=== PATIENT | female | born 1965 | race Hispanic/Latino ===

== ENCOUNTER → 2020-03-05 | Outpatient (CLI) | payer OTHER | END | disposition home or self-care (01) | LOC: SHCH 10:00 | PROVIDERS: ATTEND Internal Medicine Cardiovascular Disease | DX: R00.2 Palpitations (principal) | CPT/HCPCS: 93306; 93356 ==

== ENCOUNTER → 2022-04-09 | Outpatient (CLI) | payer OTHER | END | disposition home or self-care (01) | LOC: RAH 07:19 | PROVIDERS: ATTEND Internal Medicine Gastroenterology | DX: R11.0 Nausea (principal); R10.13 Epigastric pain; R68.81 Early satiety | CPT/HCPCS: 78264; A9541 ==

== ENCOUNTER → 2023-01-03 | Outpatient (CLI) | payer OTHER ==
[~2023-01-03] MED LIST: GADOTERATE MEGLUMINE 10 MMOL/20 ML VIAL IV ONE
== END | disposition home or self-care (01) ==
LOC: OIH 09:25
PROVIDERS: ATTEND Internal Medicine Cardiovascular Disease
DX: Z13.6 Encounter for screening for cardiovascular disorders (principal)
CPT/HCPCS: 75571

== ENCOUNTER → 2023-06-09 | Outpatient (CLI) | payer OTHER ==
[2023-06-09 11:29] LABS: BASOPHILS # (AUTO) 0.04 K/uL (0.00-0.20); BASOPHILS % (AUTO) 0.6 % (0.0-5.0); EOSINOPHILS # (AUTO) 0.09 K/uL (0.00-0.70); EOSINOPHILS % (AUTO) 1.2 % (0.0-8.0); HEMATOCRIT 39.3 % (36-48); IMMATURE GRANULOCYTE ABSOLUTE 0.02 K/uL (0-1); MEAN CORPUSCULAR HEMOGLOBIN 29.7 pg (27.0-33.0); MEAN CORPUSCULAR HGB CONC 32.3 g/dL (32.0-36.0); MEAN CORPUSCULAR VOLUME 91.8 fL (79-99); MONOCYTES # (AUTO) 0.4 K/uL (0.1-1.0); MONOCYTES % (AUTO) 5.8 % (3.0-13.0); NEUTROPHILS # (AUTO) 4.7 K/uL (1.8-7.7); NEUTROPHILS % (AUTO) 65.1 % (40.0-77.0); PLATELET COUNT (AUTO) 244 K/uL (130-400); RED BLOOD CELL COUNT(AUTO) 4.28 MIL/uL (4.00-5.50); RED CELL DISTRIBUTION WIDTH 13.4 % (11.0-15.5); WHITE BLOOD COUNT (AUTO) 7.3 K/uL (4.8-10.8)
[2023-06-09 11:46] LABS: ALBUMIN 3.6 g/dL (3.5-5.0); BILIRUBIN,TOTAL 0.4 mg/dL (0.2-1.0); CREATININE 0.7 mg/dL (0.5-1.5); POTASSIUM 4.1 mmol/L (3.5-5.1); TOTAL PROTEIN, SERUM 7.3 g/dL (6.0-8.3)
== END | disposition home or self-care (01) ==
LOC: LAB 10:52
PROVIDERS: ATTEND Family Medicine
DX: R10.12 Left upper quadrant pain (principal)
CPT/HCPCS: 36415; 80053; 82150; 83690; 85025

== ENCOUNTER → 2023-06-11 | Outpatient (CLI) | payer OTHER ==
[~2023-06-11] MED LIST changes: -GADOTERATE MEGLUMINE 10 MMOL/20 ML VIAL IV ONE; +IOHEXOL-350 75 ML VIAL IV ONE
== END | disposition home or self-care (01) ==
LOC: RAH 07:56
PROVIDERS: ATTEND Internal Medicine Gastroenterology
DX: R10.12 Left upper quadrant pain (principal); Z90.49 Acquired absence of other specified parts of digestive tract
CPT/HCPCS: 74178; Q9967; 74170

== ENCOUNTER → 2025-06-02 | Outpatient (CLI) | payer OTHER ==
--- NOTE | 2025-06-03 00:57 | HMCIMG ---
EXAM: MR right Lower Extremity without IV contrast, Knee. CLINICAL HISTORY: M25.561 Pain in right knee TECHNIQUE: Multisequence, multiplanar magnetic resonance images of the right knee without intravenous contrast. Series acquired: 4 - AX T2 - TR: 4724.0 - TE: 98.3 - ET: 21.0 - Thk: 4.0 5 - AX T1 - TR: 687.0 - TE: 16.3 - ET: 4.0 - Thk: 4.0 6 - AX 2D MERGE - TR: 900.0 - TE: 14.9 - ET: 4.0 - Thk: 4.0 7 - COR PD - TR: 2131.0 - TE: 17.2 - ET: 9.0 - Thk: 3.0 8 - COR PD FS - TR: 2530.0 - TE: 17.3 - ET: 8.0 - Thk: 3.0 9 - COR 2D MERGE - TR: 901.0 - TE: 15.3 - ET: 4.0 - Thk: 3.1 10 - SAG PD - TR: 2359.0 - TE: 15.0 - ET: 8.0 - Thk: 3.0 11 - SAG T2 - TR: 4215.0 - TE: 106.0 - ET: 17.0 - Thk: 3.0 CONTRAST: None. COMPARISON: None provided. FINDINGS: LIGAMENTS: ANTERIOR CRUCIATE: Intact. POSTERIOR CRUCIATE: Intact. LATERAL COLLATERAL: Intact. MEDIAL COLLATERAL: Thickened femoral aspect medial collateral ligament probably sequela of prior trauma TENDONS: QUADRICEPS: Intact. PATELLAR: Intact. LATERAL GASTROCNEMIUS: Intact. MEDIAL GASTROCNEMIUS: Intact. ILIOTIBIAL BAND: Intact. POPLITEUS: Intact. BONES: No acute fracture or aggressive appearing osseous lesion. Bone marrow signal intensity is within normal limits. MUSCLES: Visualized muscles demonstrate normal girth and signal intensity. FLUID: Physiologic amount of joint fluid. CARTILAGE: No full-thickness chondral defect mild tricompartmental degenerative changes. Articular cartilage thinning. MENISCI: Obliquely oriented tear body, posterior horn medial meniscus. No displaced meniscal components. Lateral meniscus unremarkable RETINACULA: The medial and lateral patellar retinacula are intact. IMPRESSION: Tear body, posterior horn medial meniscus. No displaced meniscal components Mild tricompartmental degenerative changes. /[place]
== END | disposition home or self-care (01) ==
LOC: RAH 12:42
PROVIDERS: ATTEND Family Medicine
DX: S83.241A Other tear of medial meniscus, current injury, right knee, initial encounter (principal); M17.11 Unilateral primary osteoarthritis, right knee; M25.561 Pain in right knee; X58.XXXA Exposure to other specified factors, initial encounter; Y93.89 Activity, other specified; Y92.89 Other specified places as the place of occurrence of the external cause; Y99.8 Other external cause status
CPT/HCPCS: 73721

== ENCOUNTER 2025-08-04 06:51 | Day surgery (SDC) | payer OTHER ==
[2025-08-02 10:23] LABS: IMMATURE GRANULOCYTE ABSOLUTE 0.03 K/uL (0-1); NUCLEATED RED BLOOD CELLS 0.0 % (0.0-0.19); PLATELET COUNT (AUTO) 235 K/uL (130-400); RED BLOOD CELL COUNT(AUTO) 4.48 MIL/uL (4.00-5.50); RED CELL DISTRIBUTION WIDTH 13.4 % (11.0-15.5); WHITE BLOOD COUNT (AUTO) 7.4 K/uL (4.8-10.8)
[2025-08-02 10:29] LABS: CREATININE 0.7 mg/dL (0.5-1.0); GLOMERULAR FILTR. RATE CALC 100.0 mL/min (>90); GLUCOSE,RANDOM 114.0 mg/dL (70-105); SODIUM SERUM 142.0 mmol/L (136-145); UREA NITROGEN, BLOOD 14.0 mg/dL (7-18)
[2025-08-02 10:34] LABS: INR 0.97 (0.85-1.15)
[2025-08-02 10:48] VITALS: BP 105/67; PULSE 60; RESP 18; TEMP 98.2
--- NOTE | 2025-08-02 13:19 | NUR ---
report dr liriano informed of cat bite to rt arm. pt done with 2 week treatment of antibiotics and only has slight swelling. md aware and ok to proceed
[~2025-08-04] VITALS: Ht 157.5 cm; Wt 82.8 kg
[2025-08-04] VITALS (18 sets, daily range): BP systolic 97–116; BP diastolic 43–66; PULSE 50–61; RESP 16–19; TEMP 97.2–97.5
[~2025-08-04 06:51] MED LIST changes: +ESCI5TAB16 PO; -IOHEXOL-350 75 ML VIAL IV ONE; +LEVO100C5 PO; +MAGNESIUM PO; +PANT40TA54 PO; +SUCR1TAB2 PO; +VITAMIN B12 PO
[2025-08-04] MEDS ORDERED: LIDOCAINE PF 100MG/5ML (2%) SYRINGE 5ML IVP ONE (07:10)
[2025-08-04] MEDS ORDERED: LACTATED RINGERS 1000ML 1,000 ML IV ONE (07:10)
[2025-08-04] MEDS ORDERED: NEOSTIGMINE METHYLSULFATE 1MG/ML IV ONE (07:12)
[2025-08-04] MEDS ORDERED: MIDAZOLAM HCL 1 MG/ML 2ML VIAL IVPB ONE (07:12)
[2025-08-04] MEDS ORDERED: GLYCOPYRROLATE 0.2 MG/ML 5 ML VIAL IM ONE (07:12)
[2025-08-04] MEDS ORDERED: PROMETHAZINE HCL 25 MG/ML 1ML AMPULE IM PRN (09:00)
[2025-08-04] MEDS ORDERED: SUGAMMADEX SODIUM 200 MG/2 ML VIAL IV ONE (10:02)
[2025-08-04] MEDS ORDERED: ACET-2079 PO (10:07)
--- NOTE | 2025-08-04 11:20 | NUR ---
dressing: david dressing to right knee dry/intact. ice bag in place.pt able to wiggle toes without difficulty.
--- NOTE | 2025-08-04 11:23 | OP ---
Operative Note: DATE OF PROCEDURE: 08/04/25 SURGEON: KATHERYN HELM MD BILLING CHECKER: ALBA Myles ANESTHESIA: General ANESTHESIOLOGIST/BOOKING MANAGER: Vance Hidalgo CRNA PREOPERATIVE DIAGNOSIS: Left knee medial meniscus tear POSTOPERATIVE DIAGNOSIS: Left knee medial meniscus tear PROCEDURE: Left knee arthroscopic partial medial meniscectomy ESTIMATED BLOOD LOSS: 0 cc INDICATIONS: 59-year-old female with left knee popping pain and swelling who presented with a complaint it with complaints of mechanical symptoms including locking within the knee. MRI was obtained that showed a large tear in the body and posterior horn of the medial meniscus. We discussed the findings on the MRI and possible treatment options. After discussion of the risks, benefits, and alternatives, the patient voluntarily agreed to undergo the aforementioned procedure. FINDINGS: Lateral patellar facet with some mild grade 2 chondromalacia, likewise on the medial patellar facet. Lateral tracking of the patella within the trochlea. A focal grade 3 in the central portion of the trochlea. Lateral gutter with synovitis but no loose bodies. Lateral compartment with pristine articular cartilage and intact meniscus to probing. Medial compartment with frayed tear of the posterior horn of the medial meniscus. Large partially attached there to be style fragment retrieved from the medial gutter back into the joint. Notch with the ACL intact. Medial gutter with no loose bodies. DESCRIPTION OF PROCEDURE: Patient was properly identified in the preoperative holding area. Surgical site marking was verified and surgery consent reviewed. The patient was then taken to the operating room and placed in supine position on the OR table. After induction of general anesthesia, preoperative antibiotics were given, all bony prominences were well-padded, and a well padded tourniquet was applied but not inflated at this time. The right lower extremity was then prepped and draped in usual sterile fashion. Surgical timeout was done verifying correct surgery, side, site, and location to be performed. We then began the procedure by making a standard anterolateral portal with an 11 blade and inserted our arthroscope through here. We made our anterior medial portal under direct visualization using spinal needle for localization. We then inserted our probe and performed our diagnostic arthroscopy with the above mentioned findings. At this point we inserted shaver device and performed our medial meniscal debridement. Once we were happy with our debridement, we then thoroughly irrigated out the wound with normal saline. We removed as much fluid from the knee as possible. We then injected local anesthetic within the capsule of the joint as well as around the portal sites. Our portal sites were then repaired using 3-0 nylon in simple fashion. Sterile dressing was then applied consisting of Xeroform, 4 x 4's, ABD, cast padding, and an Mukesh wrap. The patient was then awakened from anesthesia and taken to recovery room in stable condition. KATHERYN HELM MD Aug 04, 2025 11:23
--- NOTE | 2025-08-04 12:10 | NUR ---
dressing: david wrap dressing to right knee dry/intact with ice bag in place. pt able to wiggle right toes without difficulty
[2025-08-04] MEDS ORDERED: GLYCOPYRROLATE 0.2 MG/ML 5 ML VIAL ONE (13:25)
== END 2025-08-04 12:10 | disposition home or self-care (01) ==
LOC: DAH 06:51
PROVIDERS: ATTEND Student in an Organized Health Care Education/Training Program
DX: S83.241A Other tear of medial meniscus, current injury, right knee, initial encounter (principal); E03.9 Hypothyroidism, unspecified; Z79.01 Long term (current) use of anticoagulants; Z88.8 Allergy status to other drugs, medicaments and biological substances; Z90.49 Acquired absence of other specified parts of digestive tract; Z79.899 Other long term (current) drug therapy; X50.0XXA Overexertion from strenuous movement or load, initial encounter; Y93.89 Activity, other specified; Y92.89 Other specified places as the place of occurrence of the external cause; Y99.8 Other external cause status
CPT/HCPCS: 80048; 84703; 85025; 85610; 85730; 36415; 29881; 97161; 97116; A4663; J7120; J3010; J1100; J2270; J0665 ×2; J3490 ×3; J2003; J2250; J2704; J2405; J2710; J2371; J0690 ×2; A6223; A4649 ×2; A5120; A4215; A4213; A4222; A4221; A4216; A6450; A4223 ×2